=== PATIENT | male | born 1985 | race Caucasian/White ===

== ENCOUNTER → 2020-04-06 | Day surgery (SDC) | payer BC ==
[~2020-04-06] MED LIST: Ketamine 200 MG/20 ML MDV ONE; Lactated Ringers 1,000 ML IV SCH; Lidocaine 2% 5 ML SDV ONE; Midazolam 1 MG/ML 2 ML SDV ONE; Propofol 200 MG/20 ML SDV ONE; fentaNYL 100 MCG/2 ML SDV ONE
--- NOTE | 2020-04-06 14:15 | OR ---
DATE OF OPERATION: 04/06/2020 PREOPERATIVE DIAGNOSIS: ALTERED BOWEL HABITS. POSTOPERATIVE DIAGNOSIS: ALTERED BOWEL HABITS. SURGEON: Cruz Araiza MD PROCEDURE: FULL-LENGTH COLONOSCOPY WITH RANDOM BIOPSIES X6. ANESTHESIA: MAC. COMPLICATIONS: None. SPECIMEN: Random biopsies from terminal ileum to rectal vault x6. FINDINGS: Normal full-length diagnostic colonoscopy. RECOMMENDATIONS: Followup pending path reports. INDICATIONS: Connor was in for just a routine physical. He admitted that he had been having some issues with diarrhea for quite some time, and given occasional history of pencil- like stools, his father has a history of polyps, we elected to proceed with diagnostic scope. DESCRIPTION OF PROCEDURE: The patient was prepped and draped, placed in the left lateral decubitus position. A lubricated Olympus colonoscope was inserted and easily advanced to the cecum. I was able to directly visualize the ileocecal valve and appendiceal orifice. We intubated into the terminal ileum which was benign. Biopsy was taken of that area. Throughout the entire colon, I could find no polyps, masses, ulceration, or bleeding sites. No vascular abnormalities or obvious signs of colitis. There were no obstructing or worrisome lesions. I did do biopsies as stated earlier from the terminal ileum, cecum, hepatic flexure, splenic flexure, sigmoid and rectosigmoid areas. The patient had a very hard to insufflate rectal vault. I could not retroflex in him safely, but upon direct withdrawal, I could not see any perianal lesions. Air was suctioned and the scope was removed without complication. ERICA/JENNL /[id number]
== END ==
LOC: CC.SDS 11:35
PROVIDERS: ATTEND Family Medicine
DX: R59.9 Enlarged lymph nodes, unspecified (principal); R19.4 Change in bowel habit; F17.210 Nicotine dependence, cigarettes, uncomplicated; I10 Essential (primary) hypertension; E78.5 Hyperlipidemia, unspecified; Z01.812 Encounter for preprocedural laboratory examination; Z20.822 Contact with and (suspected) exposure to COVID-19; Z83.71 Family history of colonic polyps; Z88.0 Allergy status to penicillin; Z79.899 Other long term (current) drug therapy
CPT/HCPCS: 00811; J2001; J2250; J2704; J3010; J7120